=== PATIENT | female | born 1970 | race Caucasian/White ===

== ENCOUNTER 2018-10-23 03:46 | Emergency (ER) | payer SELFPAY ==
[~2018-10-23] VITALS: Ht 162.6 cm; Wt 79.4 kg
[2018-10-23 04:44] LABS: Amphetamine Screen, Urine POSITIVE (NEGATIVE); Barbiturate Scree,Urine NEGATIVE (NEGATIVE); Benzodiazephine Screen, Urine NEGATIVE (NEGATIVE); Cannabinoid Screen, Urine NEGATIVE (NEGATIVE); Cocaine Screen, Urine NEGATIVE (NEGATIVE); Opiate Scree,Urine NEGATIVE (NEGATIVE); Phencyclidine Screen, Urine NEGATIVE (NEGATIVE)
[2018-10-23] MEDS ORDERED: SODIUM CHLORIDE 0.9% 1,000 ML IV ONE ×2 (07:19)
[2018-10-23] MEDS ORDERED: LORazepam 2MG/ML-1ML VIAL IV ONE (07:45)
[2018-10-23 08:31] LABS: Urine WBC None Seen /hpf (0 - 5)
[2018-10-23 08:54] LABS: Urine Bacteria NONE SEEN /hpf (None Seen); Urine Blood Negative /uL (Negative); Urine Specific Gravity 1.003 (1.001-1.035)
[2018-10-23 09:23] VITALS: BP 137/87
== END 2018-10-23 10:35 | disposition home or self-care (01) ==
LOC: EDBD 03:46 → ER 03:52
DX: F10.920 Alcohol use, unspecified with intoxication, uncomplicated (principal); R42 Dizziness and giddiness; F15.10 Other stimulant abuse, uncomplicated; F41.9 Anxiety disorder, unspecified; Y90.0 Blood alcohol level of less than 20 mg/100 ml
CPT/HCPCS: 70450; 80307; 81001; 94761; 96361; 96374; 99284; J2060; J7030